=== PATIENT | male | born 1940 | race Caucasian/White ===

== ENCOUNTER → 2020-12-11 | Outpatient (CLI) | payer MEDICARE, BC ==
[2020-12-11 09:52] LABS: HEMOGLOBIN 16.5 gm/dl (14.0-17.5); RED BLOOD COUNT 4.99 M/UL (4.20-5.50); WHITE BLOOD COUNT 5.4 K/UL (4.5-11.0)
[2020-12-11 10:40] LABS: BUN/CREATININE RATIO 11 (0-10)
[2020-12-12 17:09] LABS: CHOLESTEROL, TOTAL 160 mg/dL (100-199); HDL SIZE 9.8 nm (>=9.2); HDL-C 67 mg/dL (>39); HDL-P (TOTAL) 36.8 umol/L (>=30.5); LARGE HDL-P 11.1 umol/L (>=4.8); LARGE VLDL-P 5.6 nmol/L (<=2.7); LDL-C 75 mg/dL (0-99); LDL-P 737 nmol/L (<1000); LP-IR SCORE 40 (<=45); SMALL LDL-P 203 nmol/L (<=527); TRIGLYCERIDES 97 mg/dL (0-149); VLDL SIZE 53.1 nm (<=46.6)
== END ==
LOC: LAB 08:32
PROVIDERS: Emergency Medicine
DX: E78.2 Mixed hyperlipidemia (principal); I12.9 Hypertensive chronic kidney disease with stage 1 through stage 4 chronic kidney disease, or unspecified chronic kidney disease; N18.30 Chronic kidney disease, stage 3 unspecified
CPT/HCPCS: 36415; 80053; 80061; 83704; 84550; 85025

== ENCOUNTER → 2021-07-07 | Outpatient (CLI) | payer MEDICARE, BC | LOC: KOH-I 13:00 | DX: R51.9 Headache, unspecified (principal); W01.198A Fall on same level from slipping, tripping and stumbling with subsequent striking against other object, initial encounter; M50.30 Other cervical disc degeneration, unspecified cervical region | CPT/HCPCS: 70450; 72125 ==

== ENCOUNTER → 2021-10-27 | Outpatient (CLI) | payer MEDICARE, BC ==
[2021-10-27 09:43] LABS: HEMOGLOBIN 16.3 gm/dl (14.0-17.5); WHITE BLOOD COUNT 6.9 K/UL (4.5-11.0)
[2021-10-27 10:24] LABS: BUN/CREATININE RATIO 13 (0-10)
== END ==
LOC: LAB 09:23
PROVIDERS: Emergency Medicine
DX: E78.2 Mixed hyperlipidemia (principal); I12.9 Hypertensive chronic kidney disease with stage 1 through stage 4 chronic kidney disease, or unspecified chronic kidney disease; N18.9 Chronic kidney disease, unspecified; Z79.899 Other long term (current) drug therapy; Z88.7 Allergy status to serum and vaccine; Z88.0 Allergy status to penicillin; Z88.2 Allergy status to sulfonamides; Z88.6 Allergy status to analgesic agent
CPT/HCPCS: 36415; 80053; 80061; 85025